=== PATIENT | male | born 1995 | race Caucasian/White ===

== ENCOUNTER 2017-07-10 22:05 | Emergency (ER) | payer SELFPAY ==
[~2017-07-10] VITALS: Ht 177.8 cm; Wt 72.8 kg
[2017-07-10 22:11] VITALS: BP 125/88
== END 2017-07-10 22:35 | disposition left against medical advice (07) ==
LOC: EME 22:05
DX: R51 Headache (principal); Y09 Assault by unspecified means; Z53.21 Procedure and treatment not carried out due to patient leaving prior to being seen by health care provider